=== PATIENT | male | born 1950 | race Two or more races ===

== ENCOUNTER 2025-03-12 17:27 | Emergency (ER) | payer OTHER ==
[~2025-03-12] VITALS: Ht 180.3 cm; Wt 84.8 kg
[2025-03-12] MEDS ORDERED: TOPROL XL25 M1 PO (18:55)
[2025-03-12] MEDS ORDERED: LIPITOR40 M1 PO (18:56)
[2025-03-12] MEDS ORDERED: CHILDREN'S ASPI81 MG PO (18:56)
[2025-03-12] MEDS ORDERED: TAMS0.4C PO (18:56)
[2025-03-12] MEDS ORDERED: CARDURA1 MG PO (18:56)
[2025-03-12] MEDS ORDERED: PROTONIX20 MG PO (18:57)
[2025-03-12] MEDS ORDERED: KETOROLAC TROMETHAMINE 30 MG VIAL IU ONE (19:30)
[2025-03-12] MEDS ORDERED: DEXAMETHASONE SODIUM PHOSPHATE 4 MG/ML VIAL IM ONE (19:30)
[2025-03-12] MEDS ORDERED: ORPHENADRINE CITRATE 30 MG/ML AMPUL IM ONE (19:30)
[2025-03-12] MEDS ORDERED: ORPHENADRINE CITRATE 30 MG/ML AMPUL ONE (22:09)
[2025-03-12] MEDS ORDERED: DEXAMETHASONE SODIUM PHOSPHATE 4 MG/ML VIAL ONE (22:09)
[2025-03-12] MEDS ORDERED: KETOROLAC TROMETHAMINE 30 MG VIAL ONE (22:09)
[2025-03-12 23:15] LABS: BASO % 0.4 % (0.1-1.2); EOS # 0.23 (0.04-0.54); EOS % 3.1 % (0.7-7.0); LYMPH # 1.43 (1.18-3.74); LYMPH % 19.2 % (19.3-53.1); MEAN PLATELET VOLUME 10.80 fl (9.4-12.4); MONO # 0.69 (0.24-0.82); MONO % 9.2 % (4.7-12.5); NEUT # 5.04 (1.56-6.13); NEUT % 67.6 % (34.0-71.1); RED CELL DISTRIBUTION WIDTH 13.8 % (11.6-14.4)
[2025-03-12 23:31] LABS: INR 1.1
[2025-03-12 23:41] LABS: ALT/SGPT 31.0 U/L (12-78); AST/SGOT 17.0 U/L (15-37); BILIRUBIN TOTAL 0.93 mg/dL (0.3-1.2); BUN CREA RATIO 39.0 (7.0-25.0); GFR 115.95; GLOBULINA 3.0 G/DL (2.4-3.5); GLUCOSE FASTING 107.0 mg/dL (65-100); OSMOLALITY SERUM 290.0 MOSM/KG (275-295)
[2025-03-12 23:42] LABS: CREATININE SERUM 0.67 mg/dL (0.70-1.30)
[2025-03-13] MEDS ORDERED: DICLOFENAC POTA50 MG PO (00:17)
[2025-03-13] MEDS ORDERED: CYCLOBENZAPRINE10 MG PO (00:17)
[2025-03-13 00:47] LABS: URINE APPEARANCE Clear; URINE BILIRRUBIN Negative (NEGATIVE); URINE BLOOD Trace; URINE COLOR Yellow; URINE GLUCOSE Negative (NEGATIVE); URINE KETONE Negative (NEGATIVE); URINE LEUKOCYTE Negative; URINE NITRATE Negative; URINE PROTEIN Negative (NEGATIVE); URINE UROBILINOGEN 1.0 E.U./dl
[2025-03-13 00:51] LABS: URINE RBC 12.6 uL (0.0-20.8)
[2025-03-13 01:02] LABS: URINE BACTERIA 3.6 uL (0.0-1933); URINE CAST 0.00 uL (0.0-1.40); URINE EPITHELIAL CELLS 0.6 uL (0.0-38.8); URINE WBC 1.0 uL (0.0-23.2)
== END 2025-03-13 00:59 | disposition home or self-care (01) ==
LOC: ER 17:28
PROVIDERS: Behavior Technician
DX: G89.11 Acute pain due to trauma (principal); M25.552 Pain in left hip; R26.2 Difficulty in walking, not elsewhere classified; W10.8XXA Fall (on) (from) other stairs and steps, initial encounter; R10.22 Pelvic and perineal pain left side
CPT/HCPCS: 36415; 72192; 73502; 96372; 99284; J1100; J1885; J2360